=== PATIENT | male | born 2000 | race Asian ===

== ENCOUNTER 2023-02-12 16:19 | Emergency (ER) | payer OTHER ==
[2023-02-12 16:37] VITALS: O2SAT 100
[2023-02-12] MEDS ORDERED: SODIUM CHLORIDE 0.9% 1,000 ML IV STA (17:05)
--- NOTE | 2023-02-12 17:17 | XRAY Report ---
PROCEDURE: Chest 1 View X-Ray INDICATIONS: CP TECHNIQUE: One view of the chest was acquired. COMPARISON: None. FINDINGS: Surgical changes and devices: None. Lungs and pleura: No pleural effusions or pneumothorax. Lungs are clear. Mediastinum: Mediastinal contours appear normal. Heart size is normal. Bones and chest wall: No suspicious bony lesions. Overlying soft tissues appear unremarkable. IMPRESSION: No acute cardiopulmonary process. Reviewed by: Mauri Garcia MD on 02/12/2023 5:15 PM PDT Approved by: Mauri Garcia MD on 02/12/2023 5:15 PM PDT Station ID: [id number]
--- NOTE | 2023-02-12 17:18 | ED Physician Documentation ---
PD HPI CHEST PAIN - Stated complaint Stated Complaint: DIZZY/CP - Chief complaint Chief Complaint: Cardiac - History obtained from History obtained from: Patient - Additional information Additional information: Patient is a 22-year-old male with no significant prior medical history presenting for evaluation of feeling short of air and chest tightness as well as lightheaded while doing the cooldown part of physical training session today.Patient reports that they were doing PT for approximately 45 minutes with various cardio exercises and then were doing a 7 to 8-minute cooldown with stretches. Afterwards he started feeling short of air and lightheaded and felt tightness in his chest. He states this lasted for approximately 20 minutes and feels better now. He states he is usually quite active including doing cardio otherwise on his own and denies having other episodes of chest pain, lightheadedness or shortness of air. He denies recent illness. He reports eating today. No vomiting or diarrhea. No headache.No recent travel or immobilization. Review of Systems Constitutional: denies: Fever Cardiac: reports: Chest pain / pressure. denies: Palpitations Respiratory: reports: Dyspnea. denies: Cough GI: denies: Abdominal Pain, Vomiting : denies: Dysuria Neurologic: denies: Headache PD PAST MEDICAL HISTORY - Present Medications Home Medications: Ambulatory Orders Medication Instructions Recorded Confirmed No Known Home Medications 02/12/23 02/12/23 - Allergies Allergies/Adverse Reactions: Allergies Allergy/AdvReac Type Severity Reaction Status Date / Time No Known Drug Allergies Allergy Verified 02/12/23 16:30 PD ED PE NORMAL - General General: Alert and oriented X 3, No acute distress, Well developed/nourished - HEENT HEENT: Atraumatic, Moist mucous membranes, Pharynx benign - Neck Neck: Supple, no meningeal sign - Cardiac Cardiac: RRR, No murmur, Strong equal pulses - Respiratory Respiratory: No respiratory distress, Clear bilaterally - Abdomen Abdomen: Soft, Non tender, Non distended - Derm Derm: Warm and dry - Extremities Extremities: No calf tenderness / cord - Neuro Neuro: Alert and oriented X 3, No motor deficit, Normal speech Results - Vitals Vitals: Vital Signs - 24 hr 02/12/23 02/12/23 02/12/23 16:25 17:30 18:14 Temperature 35.9 C L Heart Rate 102 H 89 89 Respiratory 15 16 16 Rate Blood Pressure 131/77 H 114/79 124/72 O2 Saturation 100 100 100 Oxygen O2 Source Room air - EKG (time done) 1655 EKG releavant findings:: EKG personally interpreted by author of this note. Relevant findings are: Rate 97, normal sinus rhythm, no STEMI, minimal T wave inversions in inferior leads, no prior for comparison 1730 EKG releavant findings:: EKG personally interpreted by author of this note. Relevant findings are: Rate 81, normal sinus rhythm, no STEMI, QTc 407, T waves are now upright in leads III and aVF - Labs Labs: Laboratory Tests 02/12/23 02/12/23 17:21 17:21 WBC 15.8 H RBC 5.04 Hgb 16.0 Hct 45.8 MCV 90.9 MCH 31.7 H MCHC 34.9 RDW 11.9 L Plt Count 271 MPV 8.5 Neut # (Auto) 14.1 H Lymph # (Auto) 0.9 L [place] # (Auto) 0.6 Eos # (Auto) 0.0 Baso # (Auto) 0.1 Absolute Nucleated RBC 0.00 Nucleated RBC % 0.0 Sodium 137 Potassium 4.1 Chloride 104 Carbon Dioxide 23 Anion Gap 10.0 BUN 18 Creatinine 1.3 Estimated GFR (MDRD) 70 L Glucose 87 Calcium 9.7 Total Bilirubin 0.4 AST 19 ALT 16 Alkaline Phosphatase 49 Troponin I High Sens 4.5 Total Protein 7.6 Albumin 4.7 Globulin 2.9 Albumin/Globulin Ratio 1.6 PD Medical Decision Making - ED course Complexity details: reviewed results, re-evaluated patient, d/w patient ED course: 1739 - While nurse was starting IV and repositioning the needle patient states that he was not feeling good and states he does not like needles. Nurse noted on the monitor that patient appeared to be having an irregular rhythm that looked like atrial fibrillation that lasted for a few minutes. I did request a repeat EKG which again shows a sinus rhythm but did review with the monitor strip. Pt with near syncope, CP, feeling SOA after completing PT and after cool down period. EKG reviewed without ST elevation or depression, no arrhythmia. Symptoms resolved upon arrival here. No risk factors for ACS or PE. CBC, chemistries and troponin reviewed. During IV insertion pt had period where he may have been in afib per RN watching the monitor. Repeat EKG still NSR with no ischemia. Rhythm strip reviewed. Pt feeling better here. Labs pending at time of shift change and signed out to oncoming provider to review. Chest XR negative for cardiomegaly or pneumonia. High sensitivity troponin obtained 3 hrs after symptoms so if negative do not think would not need a repeat. Pt counseled that he should have follow up with [facility] if discharged pending labs. Departure - Departure Disposition: 01 Home, Self Care Clinical Impression: Near syncope, Chest pain Condition: Stable Instructions: ED Chest Pain NonCardiac Follow-Up: MARIANNE Fuentes [Provider Group] Comments: You were evaluated for chest pain, feeling short of air and lightheaded. Your initial EKG showed a normal rhythm but there was a brief period where you may have gone into an irregular rhythm on the panel monitor (such as atrial fibrillation). You went back into a regular rhythm before we were able to fully evaluate this on a repeat EKG. Your chest x-ray is clear. Your labs are also reassuring.However I do think that you need close follow-up with [facility] and may need further evaluation of your heart to look for any irregular rhythms. In the meanwhile I would recommend light duty (Including no PT or exercising on your own) Until you are seen for follow-up. Please return to the emergency department if you develop any worsening symptoms such as chest pain, feeling faint or having trouble breathing. Forms: PCP List, Activity restrictions Discharge Date/Time: 02/12/23 18:30
[2023-02-12 17:51] LABS: BASOPHILS # (AUTO) 0.1 10^3/uL (0.0-0.1); BASOPHILS % (AUTO) 0.3 %; EOSINOPHILS % (AUTO) 0.1 %; HCT - HEMATOCRIT 45.8 % (42.0-52.0); LYMPHOCYTES # (AUTO) 0.9 10^3/uL (1.5-3.5); LYMPHOCYTES % (AUTO) 5.8 %; MEAN CORPUSCULAR HEMOGLOBIN 31.7 pg (27.0-31.0); MEAN CORPUSCULAR HGB CONC 34.9 g/dL (32.0-36.0); MEAN CORPUSCULAR VOLUME 90.9 fL (80.0-94.0); MEAN PLATELET VOLUME 8.5 fL (7.4-11.4); MONOCYTES # (AUTO) 0.6 10^3/uL (0.0-1.0); MONOCYTES % (AUTO) 4.1 %; NEUTROPHILS # (AUTO) 14.1 10^3/uL (1.5-6.6); NEUTROPHILS % (AUTO) 89.1 %; PLT - PLATELET COUNT 271 10^3/uL (130-450); RED BLOOD COUNT 5.04 10^6/uL (4.70-6.10); RED CELL DISTRIBUTION WIDTH 11.9 % (12.0-15.0); WHITE BLOOD COUNT 15.8 x10^3/uL (4.8-10.8)
[2023-02-12 18:10] LABS: ALBUMIN 4.7 g/dL (3.2-5.5); ALBUMIN/GLOBULIN RATIO 1.6 (1.0-2.2); BILIRUBIN,TOTAL 0.4 mg/dL (0.2-1.0); CALCIUM 9.7 mg/dL (8.5-10.3); CREATININE 1.3 mg/dL (0.6-1.3); POTASSIUM 4.1 mmol/L (3.5-4.5); TOTAL PROTEIN 7.6 g/dL (6.4-8.9)
[2023-02-12 18:14] LABS: TROPONIN I HIGH SENSITIVITY 4.5 ng/L (2.3-19.7)
[2023-02-12 18:18] VITALS: BP 124/72
== END 2023-02-12 18:30 | disposition home or self-care (01) ==
LOC: ED 16:19
DX: R07.9 Chest pain, unspecified (principal); R55 Syncope and collapse
CPT/HCPCS: 36415; 80053; 84484; 85025; 93005; 99284